=== PATIENT | female | born 1960 ===

== ENCOUNTER 2023-08-22 08:32 | Outpatient (AMB) | payer OTHER, SELFPAY ==
--- NOTE | 2023-08-22 08:54 | A.OFFVIS_ITS ---
Intake Intake Visit Reasons: ENP-Inv Movements w/o periods of rest - LVM Intake Note: Pt presents to the office for new pt evaluation for involuntary movements. [employer] Required: No Allergies No Known Allergies Allergy (Verified 08/22/23 08:58) HPI HPI Comments History of Present Illness Details 63 y/o female patient with hx of early o nset of Alzheimer presents for new in-person visit for evaluation of involuntary movement. Pt is accompanied with her daughter and EMT. Pt is in stretcher and lethargic. Per patient's daughter, patient's baseline is non verbal, mumble, not communicable. Pt was referred for evaluation of involuntary body movement. Pt's daughter witnessed patient wiggle herself from the wheel chair sometimes, but not sure about the involuntary body movement. She could fell out of bed, she rolled out of bed sometimes. Pt's daughter thinks that patient might be discomfort due to back pain and wiggled. Per patient's daughter and EMT states that they did not witnessed any involuntary movement this morning. Pt's daughter states that she does not know any hx of antipsychotics medication exposures. [facility] Surgical History (Updated 08/22/23 @ 09:02 by Roseann Schrader CMA) H/O shoulder surgery Hx of cholecystectomy H/O total hysterectomy Family History (Updated 08/22/23 @ 09:03 by Roseann Schrader CMA) Mother Dementia Father No problems noted. Social History (Updated 08/22/23 @ 09:04 by Roseann Schrader CMA) Household Members: Other Housing: Alf Housing Other:: [facility] Alcohol intake: never Patient Tobacco Use Status: Former Tobacco user Years Smoked: 40 Use of substances other than those prescribed or required for medical reasons: No Physical Exam Const Other: Pt is in stretcher, lethargic, very difficulty to arousals. Pt open her eyes once, and then go back to sleep. Pt does not move, no involuntary movement at this time. Assessment & Plan Assessment & Plan (1) Involuntary movements: Code(s): R25.9 - Unspecified abnormal involuntary movements Plan Advised patient to request the [facility] staff to record the video when the patient has involuntary movement to assess. Request detailed patient hx of antipsychotics medication exposure. Coding Level of Care Code New Pt Level 3 (51917) Diagnoses Involuntary movements R25.9
== END 2023-08-22 11:20 | disposition home or self-care (01) ==
PROVIDERS: PCP Hospitalist; Visit Provider Nurse Practitioner Family
DX: R25.9 Unspecified abnormal involuntary movements (principal)
CPT/HCPCS: 99203

== ENCOUNTER → 2023-08-22 08:32 | Outpatient (BNVA) | payer OTHER, SELFPAY | PROVIDERS: PCP Hospitalist; Visit Provider Nurse Practitioner Family | DX: R25.9 Unspecified abnormal involuntary movements (principal) | CPT/HCPCS: 99202 ==

== ENCOUNTER 2023-08-30 08:22 | Outpatient (AMB) | payer OTHER, SELFPAY ==
--- NOTE | 2023-08-30 08:28 | A.OFFVIS_ITS ---
Intake Intake Visit Reasons: Follow up Involuntary [phone] Allergies No Known Allergies Allergy (Verified 08/22/23 08:58) HPI HPI Comments History of Present Illness Details 63 y/o female patient presents via tele- video visit with her nursing staff for involuntary movement. Per nursing staff, patient having involuntary movement in the afternoon. Pt is a chair bound, usually leaning forward, having irregular, uncontrollable upper arm movement. Pt also has twitching movement at night, and falls from her bed in the middle of night. The nursing staff described that patient was digging into her briefs and putting her feces on her face involuntarily , and states that patient does not know what she is doing. Pt is on clonazepam 0.5 mg, but it did not help her to calm down the involuntary movement. REPLACED BY [facility] Surgical History (Updated 08/22/23 @ 09:02 by Roseann Schrader CMA) H/O shoulder surgery Hx of cholecystectomy H/O total hysterectomy Family History (Updated 08/22/23 @ 09:03 by Roseann Schrader CMA) Mother Dementia Father No problems noted. Social History (Updated 08/22/23 @ 09:04 by Roseann Schrader CMA) Household Members: Other Housing: Half-Way Housing Other:: [facility] Alcohol intake: never Patient Tobacco Use Status: Former Tobacco user Years Smoked: 40 Review of Systems Const All systems reviewed & are unremarkable except as noted in HPI and below Physical Exam Const Other: Pt is sitting wheel chair and having breakfast. No involuntary movement noted at this time. General: comfortable Assessment & Plan Assessment & Plan (1) Involuntary movements: Code(s): R25.9 - Unspecified abnormal involuntary movements Plan Do not see any involuntary movement at this visit. It maybe be dementia related behavior or REM behavior at night time. Advised the nursing staff to try melatonin 3mg qHS for night time involuntary movement. Telehealth Telehealth Location of provider rendering services: practice address Location of patient: address on file Patient Identification confirmed using: Name, : Yes Telehealth method: video Patient verbally consented to treatment: Yes Patient verbally consented to billing insurance company: Yes Patient informed of any privacy concerns related to visit: No Minutes spent on Phone/Video with Pt.: 30 Coding Level of Care Code Tele Est Pt Level 4 (27967) Diagnoses Involuntary movements R25.9
== END 2023-08-30 09:05 | disposition home or self-care (01) ==
LOC: HO.HSMS 08:22
PROVIDERS: PCP Hospitalist; Visit Provider Nurse Practitioner Family
DX: R25.9 Unspecified abnormal involuntary movements (principal)
CPT/HCPCS: 99214

== ENCOUNTER → 2023-08-30 08:22 | Outpatient (BNVA) | payer OTHER, SELFPAY | PROVIDERS: PCP Hospitalist; Visit Provider Nurse Practitioner Family ==